=== PATIENT | female | born 1970 | race Caucasian/White ===

== ENCOUNTER 2019-11-15 15:22 | Outpatient (CLI) | payer BC, SELFPAY ==
[2019-11-15 18:09] LABS: Basophils # 0.1 10^3/uL (0.0-0.1); Eosinophils # 0.4 10^3/uL (0.0-0.8); Eosinophils % 3.6 %; Hematocrit 42.9 % (37.0-47.0); Hemoglobin 13.9 g/dL (11.5-15.3); Lymphocytes # 2.8 10^3/uL (0.8-4.8); Lymphocytes % 27.7 %; Mean Corpuscular HGB Conc 32.4 g/dL (30.0-36.0); Mean Corpuscular Hemoglobin 30.6 pg (28.0-34.0); Mean Corpuscular Volume 94.5 fL (81-99); Mean Platelet Volume 10.6 fL (7.4-10.4); Monocytes # 0.6 10^3/uL (0.2-0.9); Monocytes % 6.3 %; Neutrophils # 6.1 10^3/uL (1.8-7.7); Nucleated Red Blood Cells % 0 %; Platelet Count 453 10^3/cmm (130-400); Red Blood Count 4.54 10^6/uL (4.1-5.3); Red Cell Distribution Width 13.1 % (12.1-15.1)
[2019-11-15 23:11] LABS: Hepatitis C Virus Antibody Non-Reactive (Nonreactive)
[2019-11-15 23:21] LABS: Alanine Aminotransferase 11 U/L (0-33); Albumin Level 4.4 g/dL (3.5-5.2); Alkaline Phosphatase 64 IU/L (35-105); Anion Gap 15.3 (5-19); Aspartate Amino Transferase 14 U/L (0-32); Blood Urea Nitrogen 8 mg/dL (6-20); Calcium 8.8 mg/dL (8.5-10.5); Carbon Dioxide 25 mmol/L (22-29); Chloride 101 mmol/L (98-107); Chol HDL Ratio 7.51 mg/dL (0.0-4.40); Cholesterol 308 mg/dL (0-200); Globulin 2.1 g/dL (1.3-4.6); Glomerular Filtration Rate 106.7 mL/min (90-130); Glucose 119 mg/dL (65-115); HDL Cholesterol 41 mg/dL (60-100); LDL Cholesterol Calculated 229 mg/dL (50-129); LDL HDL Ratio 5.59 RATIO (0.00-3.22); Osmolality Calculated 281 mOsm/kg (285-295); Potassium 4.3 mmol/L (3.5-5.1); Sodium 137 mmol/L (136-145); Thyroid Stimulating Hormone 2.17 uIU/mL (0.27-4.20); Total Bilirubin 0.5 mg/dL (0.15-1.2); Total Protein 6.5 g/dL (6.6-8.7); Triglycerides 190 mg/dL (0-150)
[2019-11-16 10:22] LABS: Estmated Average Glucose 143; Hemoglobin A1C 6.6 % (4.0-6.0)
== END 2019-11-15 15:23 | disposition home or self-care (01) ==
LOC: LAB 15:29
PROVIDERS: Family Provider Nurse Practitioner Family; Visit Provider Nurse Practitioner Family
DX: Z13.220 Encounter for screening for lipoid disorders (principal); M54.5 Low back pain
CPT/HCPCS: 80053; 80061; 83036; 84443; 85025; 86803

== ENCOUNTER 2019-11-29 15:19 | Outpatient (CLI) | payer BC, SELFPAY ==
[2019-11-29 17:46] LABS: Creatinine Urine, Random 229 mg/dL (28-217); Microalbum Creatinine Ratio Ur 13 mg/dL (0-20); Microalbumin Random Urine 3 ug/dL (0-20)
== END 2019-11-29 15:20 | disposition home or self-care (01) ==
LOC: LAB 15:27
PROVIDERS: PCP Nurse Practitioner Family; Visit Provider Nurse Practitioner Family
DX: R73.03 Prediabetes (principal)
CPT/HCPCS: 82044

== ENCOUNTER 2020-03-06 15:09 | Outpatient (CLI) | payer BC, SELFPAY ==
[2020-03-06 15:48] LABS: Estmated Average Glucose 117; Hemoglobin A1C 5.7 % (4.0-6.0)
[2020-03-06 16:58] LABS: Anion Gap 17.3 (5-19); Blood Urea Nitrogen 8 mg/dL (6-20); Carbon Dioxide 22 mmol/L (22-29); Chloride 102 mmol/L (98-107); Chol HDL Ratio 4.05 mg/dL (0.0-4.40); Cholesterol 170 mg/dL (0-200); Glomerular Filtration Rate 131.1 mL/min (90-130); Glucose 118 mg/dL (65-115); HDL Cholesterol 42 mg/dL (60-100); LDL Cholesterol Calculated 102 mg/dL (50-129); LDL HDL Ratio 2.43 RATIO (0.00-3.22); Osmolality Calculated 283 mOsm/kg (285-295); Potassium 4.3 mmol/L (3.5-5.1); Sodium 137 mmol/L (136-145); Triglycerides 132 mg/dL (0-150)
== END 2020-03-06 15:10 | disposition home or self-care (01) ==
LOC: LAB 15:11
PROVIDERS: PCP Nurse Practitioner Family; Visit Provider Family Medicine
DX: R73.03 Prediabetes (principal); E78.00 Pure hypercholesterolemia, unspecified; F41.1 Generalized anxiety disorder
CPT/HCPCS: 80048; 80061; 83036; 84443

== ENCOUNTER 2020-06-01 05:35 | Observation (INO) | payer BC, SELFPAY ==
[2020-06-01] VITALS (20 sets, daily range): BP systolic 106–132; BP diastolic 62–88; PULSE 70–97; RESP 16–20; TEMP 36.4–36.9; O2SAT 94–98; BMI 31.1
[2020-06-01 06:05] LABS: Glucose Point of Care 124 mg/dL (70-110)
--- NOTE | 2020-06-01 06:30 | W.ED.NEUROSD ---
HPI - Neuro Symptoms/Deficit General: Chief Complaint: Neuro Symptoms/Deficit Stated Complaint: confused/vertigo/feels drunk but isn't Time Seen by Provider: 06/01/20 06:12 History of Present Illness: HPI Narrative: 49-year-old female who fell asleep in her recliner last night around 10 or 1030 then woke up at 1 AM. She was in her normal state health when she fell asleep when she woke up she had some lightheadedness and dizziness states it was felt as if she had been drinking heavily but she had not done any alcohol. She went to bed available copra 430 5:00 sat up at the edge of the bed to smoke a cigarette and noticed that she still at the dizziness in fact it seemed a little bit worse. She also difficulty walking. When she came into the ER she had significant gait disturbance. When she was seen in the exam room she is laying semireclined symptoms are worsened when she sits up. Her daughter who is with her states that one time she felt a little bit like her speech was slurred that seems to resolve now. At the time patient was seen she is complaining of perioral numbness and tingling affecting both sides in the mouth. Onset (ago): hour(s) Last Observed Normal: 22:30 Location: left leg History of same: No Severity: moderate Quality: weak, numb and tingling Relieving factors: rest Exacerbating factors: other (Sitting up) On Anticoagulants: No Associated symptoms: Reports tingling, vertigo and weakness; Deny chest pain, cough, diaphoresis, fevers/chills, headache(s), anorexia, malaise, nausea, seizures, short of breath, syncope or vomiting Treatments Prior to Arrival: none Review of Systems Const: Denies: malaise or diaphoresis ENMT: Denies: throat pain, ear or mastoid pain, nasal discharge or nasal congestion Card: Denies: chest pain or syncope Resp: Denies: dyspnea, productive cough or non-productive cough GI: Denies: nausea or vomiting : Denies: flank pain, difficulty voiding, dysuria, urinary frequency or urinary urgency Skin/Breast: Denies: rash or pruritus Neuro: Reports: vertigo; Denies: headache(s) PFSH ED PFSH: Medical History Anxiety disorder Depression Diabetes mellitus GERD (gastroesophageal reflux disease) History of colon polyps Hyperlipidemia Surgical History S/P breast biopsy S/P dilation and curettage Miscarriage S/P endometrial ablation (03/18/11) ThermaChoice endometrial ablation. Performed by Dr. Ly at [facility] in [place], [place] S/P ERCP (~2004) At [facility]. Stone in duct after cholecystectomy. S/P laparoscopic cholecystectomy (05/21/05) Performed by Dr. Garnett at [facility] in [place], [place]. S/P tubal ligation (~2004) Family History Grandfather Cancer Prostate cancer - Maternal grandmother Grandmother CAD (coronary artery disease) Maternal Mother Syncope Black out spells Other Benign essential tremor Social History Smoking and tobacco status: current every day smoker cigarettes Packs smoked per day: 1 [ Other cigarette details: Most smoked 2 PPD ] NIH stroke score NIHSS: Level Of Consciousness - 1a: 0 Level Of Consciousness Questions - 1b: Both Correct Level Of Consciousness Commands - 1c: Both Correct Best Gaze - 2: Normal Visual Kay - 3: No Visual Loss Facial Palsy - 4: Normal Motor Arm Right - 5: No Drift Motor Arm Left - 5: No Drift Motor Leg Right - 6: Drift Motor Leg Left - 6: No Drift Limb Ataxia - 7: Present In One Limb Sensory - 8: Normal Best Language - 9: No Aphasia Dysarthia - 10: Normal Extinction And Inattention - 11: 0 Score: Total Score: 2 Physical Exam Const: COMMON NORMALS: no acute distress GENERAL APPEARANCE: cooperative and comfortable ORIENTATION/CONSCIOUSNESS: Yes awake, Yes oriented to person, Yes oriented to place and Yes oriented to time HENMT: COMMON NORMALS: normocephalic, atraumatic and hearing grossly normal bilaterally HEAD & SCALP: normocephalic and atraumatic Eye: COMMON NORMALS: Equal, round and reactive pupils present, EOMs intact bilaterally, conjunctivae normal and no scleral icterus CONJUNCTIVA: Yes conjunctivae normal PUPIL: Yes Equal, round and reactive pupils present Neck/C-Spine: COMMON NORMALS: no JVD Resp: COMMON NORMALS: normal respiratory effort, No retractions, No use of accessory muscles and clear to auscultation bilaterally AUSCULTATION: clear to auscultation bilaterally Cardio: COMMON NORMALS: no JVD, regular rate, regular rhythm and No murmurs present (Cardio) RATE: regular rate RHYTHM: regular rhythm GI: COMMON NORMALS: Soft to palpation and No hepatosplenomegaly present AUSCULTATION: Yes normoactive bowel sounds PALPATION: Yes Soft to palpation, No Tenderness to palpation present (GI), No Guarding due to palpation present (GI) and Yes No hepatosplenomegaly present Extremity: COMMON NORMALS: normal to inspection, capillary refill normal, no clubbing, cyanosis or edema, no calf tenderness and no pedal edema Neuro: SENSORIUM/ORIENTATION: Yes oriented to person, Yes oriented to place and Yes oriented to time Skin: COMMON NORMALS: no rashes or lesions noted GENERAL SKIN EXAM: no rashes or lesions noted Course Vital Signs: Vital signs: Vital Signs Temperature 98.4 F 06/01/20 05:41 Pulse Rate 88 06/01/20 06:19 Respiratory Rate 18 06/01/20 06:19 Blood Pressure 110/70 06/01/20 08:18 Pulse Oximetry 94 06/01/20 08:18 MDM - Neuro Symptoms/Deficit MDM Narrative: Medical decision making narrative: Her left leg ataxia is still persisting as is her dizziness is a little better when she is laying down. CTA of the head and neck and CT of the head are all unremarkable. Given her age and persistence of the left leg ataxia as well as dizziness we will go ahead and admit her to observation for further evaluation discussed Dr. Batista orders are written. Lab Data: Labs: Lab Results 06/01/20 06/01/20 06/01/20 Range/Units 06:02 06:10 06:15 WBC 10.1 H (4.0-10.0) 10^3/ uL RBC 4.69 (4.1-5.3) 10^6/u L Hgb 15.1 (11.5-15.3) g/dL Hct 47.6 H (37.0-47.0) % MCV 101.5 H (81-99) fL MCH 32.2 (28.0-34.0) pg MCHC 31.7 (30.0-36.0) g/dL RDW 13.1 (12.1-15.1) % Plt Count 398 (130-400) 10^3/c mm MPV 9.4 (7.4-10.4) fL Neut % (Auto) 59.0 % Lymph % (Auto) 29.2 % [place] % (Auto) 6.4 % Eos % (Auto) 4.1 % Baso % (Auto) 1.0 % Neut # (Auto) 5.95 (1.8-7.7) 10^3/u L Lymph # (Auto) 2.9 (0.8-4.8) 10^3/u L [place] # (Auto) 0.7 (0.2-0.9) 10^3/u L Eos # (Auto) 0.4 (0.0-0.8) 10^3/u L Baso # (Auto) 0.1 (0.0-0.1) 10^3/u L Nucleated RBC % (a uto) 0 % Nucleated RBCs # 0.0 /100WBC PT (12.1-14.9) SECO NDS INR (0.8-1.2) APTT (23.9-36.7) SECO NDS Sodium (136-145) mmol/L Potassium (3.5-5.1) mmol/L Chloride (98-107) mmol/L Carbon Dioxide (22-29) mmol/L Anion Gap (5-19) BUN (6-20) mg/dL Creatinine (0.5-0.9) mg/dL GFR Calculation (90-130) mL/min Glucose (65-115) mg/dL POC Glucose 124 (70-110) mg/dL Calculated Osmolal ity (285-295) mOsm/k g Lactic Acid (0.5-2.2) mmol/L Calcium (8.5-10.5) mg/dL Total Bilirubin (0.15-1.2) mg/dL AST (0-32) U/L ALT (0-33) U/L Alkaline Phosphata se (35-105) IU/L Total Protein (6.6-8.7) g/dL Albumin (3.5-5.2) g/dL Globulin (1.3-4.6) g/dL Urine Color Straw (Yellow) Urine Appearance Clear (CLEAR) Urine pH 6.5 (5-7) Ur Specific Gravit y 1.015 (1.005-1.030) Urine Protein Neg (Negative) Urine Glucose (UA) Norm (Normal) Urine Ketones Negative (Negative) Urine Blood Neg (Negative) Urine Nitrate Negative (Negative) Urine Bilirubin Neg (Negative) Urine Urobilinogen Norm (Negative) mg/dL Ur Leukocyte Breanne ase Negative (Negative) 06/01/20 06/01/20 06/01/20 Range/Units 06:15 06:15 06:15 WBC (4.0-10.0) 10^3/ uL RBC (4.1-5.3) 10^6/u L Hgb (11.5-15.3) g/dL Hct (37.0-47.0) % MCV (81-99) fL MCH (28.0-34.0) pg MCHC (30.0-36.0) g/dL RDW (12.1-15.1) % Plt Count (130-400) 10^3/c mm MPV (7.4-10.4) fL Neut % (Auto) % Lymph % (Auto) % [place] % (Auto) % Eos % (Auto) % Baso % (Auto) % Neut # (Auto) (1.8-7.7) 10^3/u L Lymph # (Auto) (0.8-4.8) 10^3/u L [place] # (Auto) (0.2-0.9) 10^3/u L Eos # (Auto) (0.0-0.8) 10^3/u L Baso # (Auto) (0.0-0.1) 10^3/u L Nucleated RBC % (a uto) % Nucleated RBCs # /100WBC PT 12.20 (12.1-14.9) SECO NDS INR 0.88 (0.8-1.2) APTT 29.3 (23.9-36.7) SECO NDS Sodium 140 (136-145) mmol/L Potassium 4.2 (3.5-5.1) mmol/L Chloride 107 (98-107) mmol/L Carbon Dioxide 24 (22-29) mmol/L Anion Gap 13.2 (5-19) BUN 10 (6-20) mg/dL Creatinine 0.5 (0.5-0.9) mg/dL GFR Calculation 131.1 H (90-130) mL/min Glucose 122 H (65-115) mg/dL POC Glucose (70-110) mg/dL Calculated Osmolal ity 290 (285-295) mOsm/k g Lactic Acid 0.7 (0.5-2.2) mmol/L Calcium 9.1 (8.5-10.5) mg/dL Total Bilirubin 0.7 (0.15-1.2) mg/dL AST 14 (0-32) U/L ALT 11 (0-33) U/L Alkaline Phosphata se 73 (35-105) IU/L Total Protein 6.8 (6.6-8.7) g/dL Albumin 4.2 (3.5-5.2) g/dL Globulin 2.6 (1.3-4.6) g/dL Urine Color (Yellow) Urine Appearance (CLEAR) Urine pH (5-7) Ur Specific Gravit y (1.005-1.030) Urine Protein (Negative) Urine Glucose (UA) (Normal) Urine Ketones (Negative) Urine Blood (Negative) Urine Nitrate (Negative) Urine Bilirubin (Negative) Urine Urobilinogen (Negative) mg/dL Ur Leukocyte Breanne ase (Negative) Discharge Plan Discharge Patient Disposition: Placed in Observation Clinical Impression: Acute CVA (cerebrovascular accident) Coding Level of Care Code ED Family Practice Md for Eriberto Fwd Exam Comprehensive
--- NOTE | 2020-06-01 06:31 | CTR_ITS ---
PROCEDURE INFORMATION: Exam: CT Head Without Contrast Exam date and time: 06/01/2020 6:40 AM Age: 50 years old Clinical indication: Dizziness; Additional info: Weakness, dizziness TECHNIQUE: Imaging protocol: Computed tomography of the head without contrast. Radiation optimization: All CT scans at this facility use at least one of these dose optimization techniques: automated exposure control; mA and/or kV adjustment per patient size (includes targeted exams where dose is matched to clinical indication); or iterative reconstruction. COMPARISON: No relevant prior studies available. RADIATION DOSE METRICS: Total DLP (mGy-cm): 888.43 FINDINGS: Brain: There is no acute intracranial hemorrhage. No extra-axial fluid collection. No evidence of acute infarct. Thomas white differentiation is intact. There is no evidence of mass. There is no mass effect or midline shift. Cerebral ventricles: No ventriculomegaly. Bones/joints: No acute fracture. Paranasal sinuses: There is right maxillary sinus retention cyst or polyp. There is minimal mucosal thickening in maxillary and ethmoid sinuses bilaterally. No air-fluid levels or acute sinusitis. Mastoid air cells: Mastoid air cells and middle ear cavities are well developed and well aerated. Soft tissues: Unremarkable as visualized. CT/CT head wo con* [id number] IMPRESSION: No evidence of acute intracranial abnormality. No acute hemorrhage. No evidence of acute infarct or mass. Radiation Dose CTDIVOL = (mGy): DLP = 888.43 (mGy-cm)
[2020-06-01 06:37] LABS: Add Urine Microscopic? NO
[2020-06-01 06:39] LABS: Basophils # 0.1 10^3/uL (0.0-0.1); Eosinophils # 0.4 10^3/uL (0.0-0.8); Eosinophils % 4.1 %; Hematocrit 47.6 % (37.0-47.0); Hemoglobin 15.1 g/dL (11.5-15.3); Lymphocytes # 2.9 10^3/uL (0.8-4.8); Lymphocytes % 29.2 %; Mean Corpuscular HGB Conc 31.7 g/dL (30.0-36.0); Mean Corpuscular Hemoglobin 32.2 pg (28.0-34.0); Mean Corpuscular Volume 101.5 fL (81-99); Mean Platelet Volume 9.4 fL (7.4-10.4); Monocytes # 0.7 10^3/uL (0.2-0.9); Monocytes % 6.4 %; Neutrophils # 5.95 10^3/uL (1.8-7.7); Nucleated Red Blood Cells % 0 %; Platelet Count 398 10^3/cmm (130-400); Red Blood Count 4.69 10^6/uL (4.1-5.3); Red Cell Distribution Width 13.1 % (12.1-15.1); White Blood Count 10.1 10^3/uL (4.0-10.0)
[2020-06-01 06:42] LABS: Urine Appearance Clear (CLEAR); Urine Color Straw (Yellow)
[2020-06-01 06:43] LABS: Bilirubin Urine Neg (Negative); Blood Urine Neg (Negative); Glucose Urine UA Norm (Normal); Ketones Urine Negative (Negative); Leukocyte Esterase Urine Negative (Negative); Nitrate Urine Negative (Negative); Protein Urine Neg (Negative); Specific Gravity, Urine 1.015 (1.005-1.030); Urobilinogen Urine Norm (Negative); pH Urine 6.5 (5-7)
[2020-06-01 06:52] LABS: INR 0.88 (0.8-1.2)
[2020-06-01 06:53] LABS: Lactic Sepsis W/Reflex 0.7 mmol/L (0.5-2.2); Partial Thromboplastin Time 29.3 SECONDS (23.9-36.7)
[2020-06-01 06:54] LABS: Alanine Aminotransferase 11 U/L (0-33); Albumin Level 4.2 g/dL (3.5-5.2); Alkaline Phosphatase 73 IU/L (35-105); Anion Gap 13.2 (5-19); Aspartate Amino Transferase 14 U/L (0-32); Blood Urea Nitrogen 10 mg/dL (6-20); Calcium 9.1 mg/dL (8.5-10.5); Carbon Dioxide 24 mmol/L (22-29); Chloride 107 mmol/L (98-107); Globulin 2.6 g/dL (1.3-4.6); Glomerular Filtration Rate 131.1 mL/min (90-130); Glucose 122 mg/dL (65-115); Osmolality Calculated 290 mOsm/kg (285-295); Potassium 4.2 mmol/L (3.5-5.1); Sodium 140 mmol/L (136-145); Total Bilirubin 0.7 mg/dL (0.15-1.2); Total Protein 6.8 g/dL (6.6-8.7)
--- NOTE | 2020-06-01 07:23 | CTR_ITS ---
PROCEDURE INFORMATION: Exam: CT Angiography Head With Contrast Exam date and time: 06/01/2020 7:29 AM Age: 50 years old Clinical indication: Dizziness and giddiness; Additional info: L leg weakness and ataxia TECHNIQUE: Imaging protocol: Computed tomography angiography of the head with intravenous contrast. 3D rendering (Not supervised by radiologist): MIP and/or 3D reconstructed images were created by the technologist. Radiation optimization: All CT scans at this facility use at least one of these dose optimization techniques: automated exposure control; mA and/or kV adjustment per patient size (includes targeted exams where dose is matched to clinical indication); or iterative reconstruction. Contrast material: OMNI 350; Contrast volume: 95 ml; Contrast route: INTRAVENOUS (IV); COMPARISON: CT head wo con* [id number] 06/01/2020 6:43 AM RADIATION DOSE METRICS: Total DLP (mGy-cm): 2400.65 FINDINGS: ANTERIOR CIRCULATION: Right internal carotid artery: Minimal calcification. Intracranial segment is patent with no significant stenosis. No aneurysm. Right middle cerebral artery: Unremarkable. No occlusion or significant stenosis. No aneurysm. Right anterior cerebral artery: Unremarkable. No occlusion or significant stenosis. No aneurysm. Left internal carotid artery: Minimal calcification. Intracranial segment is patent with no significant stenosis. No aneurysm. Left middle cerebral artery: Unremarkable. No occlusion or significant stenosis. No aneurysm. Left anterior cerebral artery: Unremarkable. No occlusion or significant stenosis. No aneurysm. POSTERIOR CIRCULATION: Right vertebral artery: Unremarkable. No occlusion or significant stenosis. No aneurysm. Left vertebral artery: Unremarkable. No occlusion or significant stenosis. No aneurysm. Basilar artery: Unremarkable. No occlusion or significant stenosis. No aneurysm. Right posterior cerebral artery: Unremarkable. No occlusion or significant stenosis. No aneurysm. Left posterior cerebral artery: Unremarkable. No occlusion or significant stenosis. No aneurysm. Veins: Cerebral venous structures are patent. Brain: No definite mass, mass effect, or midline shift. Cerebral ventricles: No ventriculomegaly. Paranasal sinuses: There are 2 right maxillary sinus retention cysts or polyps. IMPRESSION: No intracranial vascular stenosis or occlusion. PROCEDURE INFORMATION: Exam: CT Angiography Neck With Contrast Exam date and time: 06/01/2020 7:29 AM Age: 50 years old Clinical indication: Dizziness and giddiness; Additional info: L leg weakness and ataxia TECHNIQUE: Imaging protocol: Computed tomography angiography of the neck with intravenous contrast. 3D rendering (Not supervised by radiologist): MIP and/or 3D reconstructed images were created by the technologist. Radiation optimization: All CT scans at this facility use at least one of these dose optimization techniques: automated exposure control; mA and/or kV adjustment per patient size (includes targeted exams where dose is matched to clinical indication); or iterative reconstruction. Contrast material: OMNI 350; Contrast volume: 95 ml; Contrast route: INTRAVENOUS (IV); COMPARISON: CT head wo con* [id number] 06/01/2020 6:43 AM RADIATION DOSE METRICS: Total DLP (mGy-cm): 2400.65 FINDINGS: Right common carotid artery: No stenosis. No dissection or occlusion. Right internal carotid artery: There is minimal plaque right carotid bifurcation. There is no stenosis, thrombosis, occlusion, or evidence of dissection. Right external carotid artery: No occlusion or stenosis of the origin. Right vertebral artery: No stenosis. No dissection or occlusion. Left common carotid artery: No stenosis. No dissection or occlusion. Left internal carotid artery: Left internal carotid artery shows no stenosis, thrombosis, occlusion, or evidence of dissection. Left external carotid artery: No occlusion or stenosis of the origin. Left vertebral artery: No stenosis. No dissection or occlusion. Subclavian arteries: Bilateral subclavian arteries are widely patent. Aorta: Aortic arch normal in caliber. No aneurysm or dissection. Thyroid: Two small low-density right thyroid nodules measuring up to 4 mm. No follow-up is recommended. Bones/joints: There is straightening and slight reversal of cervical lordosis. There are degenerative changes which are predominantly at C5-C6 where there is disc height loss, disc osteophyte complexes causing effacement of spinal canal and likely mild or moderate spinal stenosis, and prominent uncinate osteophytes causing severe bilateral neural foraminal narrowing. There are prominent uncinate osteophytes at left C3-C4 causing severe left neural foraminal narrowing. Soft tissues: Normal. No significant soft tissue swelling. Lymph nodes: There are nonspecific cervical lymph nodes which are greatest and upper limits normal in bilateral levels 1B and 2. Lungs: There are small lucencies in visualized lungs consistent with small bulla. No consolidation. CT/CT angio headneck* [id number] IMPRESSION: No evidence of cervical vascular stenosis or occlusion. Other findings as described. COMMENTS: Consistent with the [employer]'s Incidental Findings Committee white paper (J Am Elizabeth Radiol 2015): In patients aged 35 years and older with an incidental thyroid nodule equal to or greater than 1.[address], MRI or extrathyroidal US, further evaluation with dedicated thyroid US is recommended for patients with normal life expectancy and without comorbidities. For smaller nodules without suspicious features, no further evaluation or follow up is recommended. REFERENCES: NASCET CRITERIA. The degree of internal carotid artery stenosis is based on NASCET criteria. Normal is no stenosis. Mild is less than 50% stenosis. Moderate is 50-69% stenosis. Severe is 70% to 99% stenosis. Total occlusion is no detectable patent lumen. Radiation Dose CTDIVOL = (mGy): DLP = 2400.65~2400.65 (mGy-cm)
[2020-06-01] MEDS: ondansetron 2 mg/ML SDV 2 mL 4 MG IVP ×2 (07:27→14:15)
[2020-06-01] MEDS: iohexol 350 mg/mL 100 mL Btl IV (07:48)
[2020-06-01] MEDS: nicotine 21 mg Patch 1 PATCH TRANSDERMA (09:24)
--- NOTE | 2020-06-01 09:53 | P.HP_ITS ---
Providers/Chief Complaint Admitting Physician: Chastity Betts Chief Complaint: confused/vertigo/feels drunk but isn't History of Present Illness 50-year-old female with a past medical history significant for gastroesophageal reflux disease, hyperlipidemia, tobacco abuse, anxiety, depression, diabetes mellitus and recent COVID-19 infection in early March who was presented to the hospital with onset of dizziness, slurred speech and ataxia. Patient stated that she had woken up from sleep around 1:00 a.m. to use the restroom during whi ch time she noted the symptoms. Was falling towards the left with any attempted ambulate. She was able to fall back asleep however upon wakening up this morning she noted persistent symptoms. Stated her daughter had noticed slurred speech during which time she had perioral numbness and tingling as well. Denies any chest pain. No loss of conscious. No prior history of CVA. upon arrival to emergency room her initial NIH score was 2. initial laboratory workup in emergency room showed a WBC of 10.1, hemoglobin of 15.1, hematocrit of 47.6 and a platelet count of 398. INR of 0.88. Sodium 140, potassium 4.2, chloride 107, bicarb 24, BUN 10 and creatinine of 0.5. Lactic acid of 0.7. LFTs were within normal limits. Urinalysis was negative. Vital signs showed a blood pressure of 116/77, pulse of 72, respiratory rate of 18, temperature of 97.6 and oxygen saturation of 97% on room air. CT head without contrast and CT angio head and neck was performed both of which did not show any evidence of acute hemorrhage, intra-cranial mass or flow-limiting stenosis. At the time of my salazar toussaint,oral numbness has resolved however did have continued left upper and lower extremity weakness. Patient was admitted to hospital for CVA work up. Review of Systems General: Reports: 10 or more systems reviewed and unremarkable except in HPI and below Medications/Allergies Home Medications Medication Instructions Recorded Confirmed Last Taken Type baclofen 10 mg tablet 10 mg PO TID PRN tab 04/03/20 06/01/20 Unknown History cetirizine 10 mg capsule 10 mg PO DAILY PRN 04/03/20 06/01/20 Unknown History diclofenac potassium 50 mg tablet 50 mg PO TID PRN 04/03/20 06/01/20 Unknown History duloxetine 60 mg capsule,delayed 60 mg PO DAILY@22 04/03/20 06/01/20 05/31/20 History release fluticasone propionate 50 1 spray INTRANASAL DAILY PRN 04/03/20 06/01/20 Unknown History mcg/actuation nasal spray,suspension lorazepam 1 mg tablet 1 mg PO BID PRN tab 04/03/20 06/01/20 Unknown History metformin 500 mg tablet,extended 500 mg PO DAILY@04/03/20 06/01/20 05/31/20 History release 24 hr rosuvastatin 20 mg tablet 10 mg PO DAILY@04/03/20 06/01/20 05/31/20 History 10 mg albuterol sulfate 1 - 2 puff INHALATION Q4H PRN 06/01/20 06/01/20 Unknown History pediatric multivitamin See Rx Instructions .ROUTE .COMPLEX 06/01/20 06/01/20 05/31/20 History [Flintstones Multivitamin] Allergies Allergy/AdvReac Type Severity Reaction Status Date / Time No Known Allergies Allergy Verified 06/01/20 09:24 PFSH Acute PFSH: Medical History Anxiety disorder Depression Diabetes mellitus GERD (gastroesophageal reflux disease) History of colon polyps Hyperlipidemia Surgical History S/P breast biopsy S/P dilation and curettage Miscarriage S/P endometrial ablation (03/18/11) ThermaChoice endometrial ablation. Performed by Dr. Ly at [facility] in [place], [place] S/P ERCP (~2004) At [facility]. Stone in duct after cholecystectomy. S/P laparoscopic cholecystectomy (05/21/05) Performed by Dr. Garnett at [facility] in [place], [place]. S/P tubal ligation (~2004) Family History Grandfather Cancer Prostate cancer - Maternal grandmother Grandmother CAD (coronary artery disease) Maternal Mother Syncope Black out spells Other Benign essential tremor Social History Smoking and tobacco status: current every day smoker cigarettes Packs smoked per day: 1 [ Other cigarette details: Most smoked 2 PPD ] Vitals/I&O/Wt Last Vital Signs Temp 97.9 F 06/01/20 11:43 Pulse 80 06/01/20 11:43 Resp 18 06/01/20 11:43 BP 115/72 06/01/20 11:43 Pulse Ox 97 06/01/20 11:43 Weight last 48 hrs Weight 79.832 kg Physical Exam Narrative: EXAM NARRATIVE: General -alert awake and oriented x3, no apparent distress HEENT-grossly unremarkable CVS : NSR Chest : Non-labored respiration ABD : Soft NT, ND EXT : NO edema Neuro : CN 2-12 grossly intact, MS on LUE - 4/5, LLE 3/5, Sensation intact. Data : 06/01/20 06:15 06/01/20 06:15 A&P Assessment and plan (1) Acute CVA (cerebrovascular accident): Continue to have L.sided weakness Suspected CVA - NIH 2 on arrival No TPA due to unclear onset > [address] head/CTA H&N - no acute hemorrhage, or stenosis Asprin 81 mg PO daily High dose statin- Lipitor 80 mg PO daily Lipid panel in am / A1c in AM MRI brain w/wo contrast 24hr post symptoms ECHO - Pending Monitor on telemetry Neuro-checks as ordered. NPO until pass bedside swallow PT/OT/ST consult lead clinical research coordinator consult Fall precautions Status: Acute (2) Diabetes mellitus: Check A1c in AM Sliding scale insulin Diabetic diet Hold home metformin Status: Acute (3) Depression: Status: Acute (4) Anxiety disorder: Status: Acute (5) Hyperlipidemia: As noted above Status: Acute (6) GERD (gastroesophageal reflux disease): Status: Acute (7) History of 2019 novel coronavirus disease (COVID-19): Aymptomatic Status: Acute Attestations Medical Necessity Statement*: Will require hospitalization for stroke work up. Placed in observation. Anticipate less than 2 midnight stay in hospital for managment. Time Spent in Patient Care: Greater than 35 minutes (>than 50% of time spent in counselling and/or direct pt care on unit) . Coding Level of Care Code Acute Talent Specialist for Eriberto Lerma Diagnoses Acute CVA (cerebrovascular accident) I63.9 Diabetes mellitus E11.9 Depression F32.9 Anxiety disorder F41.9 Hyperlipidemia E78.5 GERD (gastroesophageal reflux disease) K21.9 History of 2019 novel coronavirus disease (COVID-19) Z86.19
--- NOTE | 2020-06-01 10:00 | MRR_ITS ---
PROCEDURE INFORMATION: Exam: MR Head Without and With Contrast Exam date and time: 06/01/2020 10:04 AM Age: 50 years old Clinical indication: Weakness, extremity; Left; Additional info: Lle weakness/ ataxia suspected CVA TECHNIQUE: Imaging protocol: MR of the head without and with intravenous contrast. 3D rendering (Not supervised by radiologist): MIP and/or 3D reconstructed images were created by the technologist. Contrast material: PROHANCE; Contrast volume: 16 ml; Contrast route: INTRAVENOUS (IV); COMPARISON: CT head wo con* [id number] 06/01/2020 6:43 AM FINDINGS: Brain: Scattered areas of increased signal in cerebral white matter predominantly in subcortical regions and centrally within the tera are nonspecific but may be microvascular change. These can also be seen as sequela of migraine headaches. There is no abnormal leptomeningeal or parenchymal contrast enhancement. Diffusion images are normal. No evidence of acute infarction. No evidence of acute intracranial hemorrhage. No extra-axial fluid collections. Ventricles and cerebrospinal fluid spaces are normal in size and configuration for the patient's age. There is no evidence of mass-effect or midline shift. Flow voids of the [place] and major cerebral vascular structures appear intact. Cerebellar tonsils project slightly below level of foramen magnum, and location is lower limits of normal. Configuration of cerebellar tonsils is normal and rounded.. Cerebral ventricles: Normal. No ventriculomegaly. Bones/joints: Unremarkable as visualized. Paranasal sinuses: There are right maxillary sinus retention cysts or polyps. Mastoid air cells: No significant mastoid effusion. Orbits: Unremarkable as visualized. No exophthalmos or evidence of mass. Soft tissues: Unremarkable as visualized. MR/MR head wo/w con [id number] IMPRESSION: Mild nonspecific white matter changes. No acute infarct, acute hemorrhage, or evidence of intracranial mass.
[2020-06-01] MEDS: sodium chloride 0.9% 1,000 ML 100 ML IV ×2 (10:50→20:23)
[2020-06-01 11:46] LABS: Glucose Point of Care 145 mg/dL (70-110)
[2020-06-01 16:37] LABS: Glucose Point of Care 127 mg/dL (70-110)
[2020-06-01] MEDS: atorvastatin 40 mg Tablet 80 MG PO (20:35)
[2020-06-01 21:13] LABS: Glucose Point of Care 94 mg/dL (70-110)
[2020-06-02] VITALS (10 sets, daily range): BP systolic 104–132; BP diastolic 63–87; PULSE 69–89; RESP 16–18; TEMP 36.4–37.1; O2SAT 96–98
[2020-06-02] MEDS: duloxetine 60 mg Capsule PO (00:06)
[2020-06-02 03:48] LABS: Chol HDL Ratio 3.39 mg/dL (0.0-4.40); Cholesterol 156 mg/dL (0-200); HDL Cholesterol 46 mg/dL (60-100); LDL Cholesterol Calculated 88 mg/dL (50-129); LDL HDL Ratio 1.91 RATIO (0.00-3.22); Triglycerides 108 mg/dL (0-150)
[2020-06-02 03:49] LABS: Alanine Aminotransferase 8 U/L (0-33); Albumin Level 3.7 g/dL (3.5-5.2); Alkaline Phosphatase 62 IU/L (35-105); Anion Gap 12.1 (5-19); Aspartate Amino Transferase 11 U/L (0-32); Blood Urea Nitrogen 10 mg/dL (6-20); Calcium 8.4 mg/dL (8.5-10.5); Carbon Dioxide 23 mmol/L (22-29); Chloride 109 mmol/L (98-107); Estmated Average Glucose 111; Globulin 2.2 g/dL (1.3-4.6); Glomerular Filtration Rate 131.1 mL/min (90-130); Glucose 109 mg/dL (65-115); Hemoglobin A1C 5.5 % (4.0-6.0); Osmolality Calculated 290 mOsm/kg (285-295); Potassium 4.1 mmol/L (3.5-5.1); Sodium 140 mmol/L (136-145); Total Bilirubin 0.3 mg/dL (0.15-1.2); Total Protein 5.9 g/dL (6.6-8.7)
[2020-06-02 03:55] LABS: Basophils # 0.1 10^3/uL (0.0-0.1); Basophils % 0.9 %; Eosinophils # 0.5 10^3/uL (0.0-0.8); Hematocrit 39.7 % (37.0-47.0); Hemoglobin 13.2 g/dL (11.5-15.3); Lymphocytes # 3.2 10^3/uL (0.8-4.8); Lymphocytes % 34.6 %; Mean Corpuscular HGB Conc 33.2 g/dL (30.0-36.0); Mean Corpuscular Hemoglobin 31.7 pg (28.0-34.0); Mean Corpuscular Volume 95.4 fL (81-99); Mean Platelet Volume 9.5 fL (7.4-10.4); Monocytes # 0.7 10^3/uL (0.2-0.9); Monocytes % 7.3 %; Neutrophils # 4.86 10^3/uL (1.8-7.7); Nucleated Red Blood Cells % 0 %; Platelet Count 370 10^3/cmm (130-400); Red Blood Count 4.16 10^6/uL (4.1-5.3); White Blood Count 9.3 10^3/uL (4.0-10.0)
--- NOTE | 2020-06-02 06:00 | USCV_ITS ---
Ashley Gutierrez Age: 50 Gender: F : 1970 Exam Date: 06/02/2020 08:33 Ordering Phys: Chastity Betts MD Technologist: Darlene Vicente [place] [facility] [place]: CVA Workup BP: 104 / 63 HR: 74 Rhythm: Sinus Technical Quality: Fair MEASUREMENTS (Male / Female) Normal Values 2D ECHO LV Diastolic Diameter PLAX 4.6 cm 4.2 - 5.9 / 3.9 - 5.3 cm LV Systolic Diameter PLAX 2.9 cm LV Chamber Size 4.3 cm IVS Diastolic Thickness 1.0 cm 0.6 - 1.0 / 0.6 - 0.9 cm IVS Systolic Thickness 1.2 cm LVPW Diastolic Thickness 0.6 cm 0.6 - 1.0 / 0.6 - 0.9 cm LVPW Systolic Thickness 1.1 cm RV Chamber Size 2.3 cm LVOT Diameter 1.8 cm LV Ejection Fraction 2D Teich 68.2 % LV Ejection Fraction MOD 2C 54.6 % LV Ejection Fraction 2C AL 55.3 % LA Diameter 3.1 cm LA Width 3.4 cm LA Height 4.4 cm RA Width 2.9 cm RA Height 4.3 cm Aorta at Sinotubular Diameter 2.5 cm M-MODE LV Diastolic Diameter MM 4.7 cm 4.2 - 5.9 / 3.9 - 5.3 cm LV Systolic Diameter MM 2.9 cm LV Ejection Fraction MM Teich 69.1 % IVS Diastolic Thickness MM 1.1 cm 0.6 - 1.0 / 0.6 - 0.9 cm IVS Systolic Thickness MM 1.3 cm LVPW Diastolic Thickness MM 1.1 cm 0.6 - 1.0 / 0.6 - 0.9 cm LVPW Systolic Thickness MM 1.6 cm RV Diastolic Diameter MM 1.8 cm Aortic Annulus Diameter 2.7 cm LA Ao Ratio MM 1.4 MV E Point Septal Separation 0.3 cm DOPPLER AV Peak Velocity 141.0 cm/s LVOT Peak Velocity 83.0 cm/s AV Area Cont Eq vti 1.6 cm squared AV Area Cont Eq pk 1.5 cm squared MV Area PHT 2.9 cm squared Mitral E to A Ratio 1.0 MV E' Velocity 41.0 cm/s Mitral E to MV E' Ratio 4.5 Mitral E to LV E' Lateral Ratio 4.2 Mitral E to LV E' Septal Ratio 4.8 TR Peak Velocity 179.0 cm/s TR Peak Gradient 12.8 mmHg TV Peak E Velocity 54.0 cm/s Right Atrial Pressure 3.0 mmHg Pulmonary Artery Systolic Pressu 15.8 mmHg PV Peak Velocity 87.0 cm/s RV Acceleration Time 0.1 s RV Ejection Time 0.3 s RV AcT/ET 0.5 FINDINGS Left Ventricle Normal left ventricular cavity size. Normal left ventricular systolic function. No regional wall motion abnormalities. Left ventricular ejection fraction is estimated at 65 %. Normal diastolic function. Right Ventricle The right ventricle is normal in size and function. RVSP could not be calculated due to incomplete tricuspid regurgitation velocity profile. Right Atrium The right atrium is normal in size. Left Atrium The left atrium is normal in size. Mitral Valve Mildly thickened mitral valve. Mild mitral annular calcification. No mitral valve stenosis. Trace mitral valve regurgitation. Aortic Valve Mild aortic valve calcification. No aortic valve stenosis. Trace aortic valve regurgitation. Tricuspid Valve Trace tricuspid valve regurgitation. Pulmonic Valve Structurally normal pulmonic valve without significant stenosis. There is no pulmonic regurgitation. Pericardium Normal pericardium without effusion. Aorta Normal ascending aorta dimension. CONCLUSIONS 1-Normal left ventricular cavity size. Normal left ventricular systolic function. No regional wall motion abnormalities. Left ventricular ejection fraction is estimated at 65 %. Normal diastolic function. 2-There is no pericardial effusion. 3-No significant valve abnormalities. 4-The right ventricle is normal in size and function. RVSP could not be calculated due to incomplete tricuspid regurgitation velocity profile. 5-Right atrial pressure is around 5 mm of mercury. 6-There are no prior echocardiogram studies to compare. Dion Jasso MD (Electronically Signed) Final Date: 02 June 2020 17:13 S
[2020-06-02] MEDS: sodium chloride 0.9% 1,000 ML 100 ML IV (06:35)
[2020-06-02 07:45] LABS: Glucose Point of Care 116 mg/dL (70-110)
[2020-06-02] MEDS: aspirin 81 mg EC Tablet PO (09:06)
[2020-06-02 11:36] LABS: Glucose Point of Care 104 mg/dL (70-110)
[2020-06-02] MEDS: nicotine 21 mg Patch 1 PATCH TRANSDERMA (16:00)
[2020-06-02] MEDS: clopidogrel 75 mg Tablet PO (16:00)
[2020-06-02 17:28] LABS: Glucose Point of Care 135 mg/dL (70-110)
--- NOTE | 2020-06-02 20:43 | P.DS_ITS ---
Discharge Providers Date of Admission: 06/01/20 09:11 Date of Discharge: June 02, 2020 Attending Provider at Admission: Chastity Betts Attending Provider at Discharge: Chastity Betts Diagnoses at Discharge Discharge Diagnosis (1) Acute CVA (cerebrovascular accident): Status: Acute (2) Diabetes mellitus: Status: Acute (3) Depression: Status: Acute (4) Anxiety disorder: Status: Acute (5) Hyperlipidemia: Status: Acute (6) GERD (gastroesophageal reflux disease): Status: Acute Permanent problem details: PPI (7) History of 2019 novel coronavirus disease (COVID-19): Status: Acute Reason for Visit Reason for Visit: confused/vertigo/feels drunk but isn't Hospital Course Hospital Course 50-year-old female with a past medical history significant for gastroesophageal reflux disease, hyperlipidemia, tobacco abuse, anxiety, depression, diabetes mellitus and recent COVID-19 infection in early March who was presented to the hospital with onset of dizziness, slurred speech and ataxia. Patient stated that she had woken up from sleep around 1:00 a.m. to use the restroom during which time she noted the symptoms. Was falling towards the left with any attempted ambulate. She was able to fall back asleep however upon wakening up this morning she noted persistent symptoms. Stated her daughter had noticed slurred speech during which time she had perioral numbness and tingling as well. Denies any chest pain. No loss of conscious. No prior history of CVA. upon arrival to emergency room her initial NIH score was 2. initial laboratory workup in emergency room showed a WBC of 10.1, hemoglobin of 15.1, hematocrit of 47.6 and a platelet count of 398. INR of 0.88. Sodium 140, potassium 4.2, chloride 107, bicarb 24, BUN 10 and creatinine of 0.5. Lactic acid of 0.7. LFTs were within normal limits. Urinalysis was negative. Vital signs showed a blood pressure of 116/77, pulse of 72, respiratory rate of 18, temperature of 97.6 and oxygen saturation of 97% on room air. CT head without contrast and CT angio head and neck was performed both of which did not show any evidence of acute hemorrhage, intra-cranial mass or flow-limiting stenosis. At the time of my eval dizziness,oral numbness has resolved however did have continued left upper and lower extremity weakness. Patient was admitted to hospital for CVA work up. Upon admission to the hospital patients symptoms had improved. Echocardiogram was performed which did not show any structural heart defect. Ejection fraction was preserved. MRI with and without contrast was performed which also did not show any evidence of acute CVA. No new neurological deficits were noted. Case was discussed with Neurology as patient was continued to have subtle weakness primarily in left lower extremity. Due to this patient was continued on dual anti-platelet therapy for 3 weeks with aspirin 81 mg daily and Plavix 75 mg daily. After completion she was to continue aspirin 81 mg daily. Patient was already on high-dose statins at home prior to arrival which was continued. Exact etiology of weakness was not clear however suspicion for COVID-19 related. patient was advised to return to hospital if any worsening or new symptoms. Did not have any fever med chills, nausea or vomiting. No dysphagia was noted. Speech was at baseline since admission. Patient was seen by PT and OT. Was discharged in stable condition. Physical Exam Narrative: EXAM NARRATIVE: General -alert awake and oriented x3, no apparent distress HEENT-grossly unremarkable CVS : NSR Chest : Non-labored respiration ABD : Soft NT, ND EXT : NO edema Neuro : CN 2-12 grossly intact, MS on LUE - 5/5, LLE 5/5, Sensation intact. Discharge Data Data Completed and Pending: Completed Studies During Hospitalization Category Date Time Status CT angio headneck * [id number] Stat Cat Scan 06/01/20 07:[address] head wo con* [id number] Stat Cat Scan 06/01/20 06:31 Completed MR head wo/w con [id number] Routine MRI 06/01/20 10:00 Completed CV echo complete* [id number] Routine Ultrasound 06/02/20 06:00 Completed Labs from last 24 hours 06/02/20 06/02/20 06/02/20 17:14 11:25 07:42 WBC RBC Hgb Hct MCV MCH MCHC RDW Plt Count MPV Neut % (Auto) Lymph % (Auto) [place] % (Auto) Eos % (Auto) Baso % (Auto) Neut # (Auto) Lymph # (Auto) [place] # (Auto) Eos # (Auto) Baso # (Auto) Nucleated RBC % (a uto) Nucleated RBCs # Sodium Potassium Chloride Carbon Dioxide Anion Gap BUN Creatinine GFR Calculation Glucose POC Glucose 135 104 116 Estimat Average Gl ucose Hemoglobin A1c Calculated Osmolal ity Calcium Total Bilirubin AST ALT Alkaline Phosphata se Total Protein Albumin Globulin Triglycerides Cholesterol LDL Cholesterol, C alc HDL Cholesterol LDL/HDL Ratio Cholesterol/HDL Ra manny 06/02/20 06/02/20 06/02/20 03:17 03:10 03:10 WBC 9.3 RBC 4.16 Hgb 13.2 Hct 39.7 MCV 95.4 D MCH 31.7 MCHC 33.2 RDW 13.0 Plt Count 370 MPV 9.5 Neut % (Auto) 52.0 Lymph % (Auto) 34.6 [place] % (Auto) 7.3 Eos % (Auto) 5.0 Baso % (Auto) 0.9 Neut # (Auto) 4.86 Lymph # (Auto) 3.2 [place] # (Auto) 0.7 Eos # (Auto) 0.5 Baso # (Auto) 0.1 Nucleated RBC % (a uto) 0 Nucleated RBCs # 0.0 Sodium Potassium Chloride Carbon Dioxide Anion Gap BUN Creatinine GFR Calculation Glucose POC Glucose Estimat Average Gl ucose 111 Hemoglobin A1c 5.5 Calculated Osmolal ity Calcium Total Bilirubin AST ALT Alkaline Phosphata se Total Protein Albumin Globulin Triglycerides 108 Cholesterol 156 LDL Cholesterol, C alc 88 HDL Cholesterol 46 L LDL/HDL Ratio 1.91 Cholesterol/HDL Ra manny 3.39 06/02/20 06/01/20 03:10 21:08 WBC RBC Hgb Hct MCV MCH MCHC RDW Plt Count MPV Neut % (Auto) Lymph % (Auto) [place] % (Auto) Eos % (Auto) Baso % (Auto) Neut # (Auto) Lymph # (Auto) [place] # (Auto) Eos # (Auto) Baso # (Auto) Nucleated RBC % (a uto) Nucleated RBCs # Sodium 140 Potassium 4.1 Chloride 109 H Carbon Dioxide 23 Anion Gap 12.1 BUN 10 Creatinine 0.5 GFR Calculation 131.1 H Glucose 109 POC Glucose 94 Estimat Average Gl ucose Hemoglobin A1c Calculated Osmolal ity 290 Calcium 8.4 L Total Bilirubin 0.3 AST 11 ALT 8 Alkaline Phosphata se 62 Total Protein 5.9 L Albumin 3.7 Globulin 2.2 Triglycerides Cholesterol LDL Cholesterol, C alc HDL Cholesterol LDL/HDL Ratio Cholesterol/HDL Ra manny Vitals: Last Vital Signs Temp 98.4 F 06/02/20 18:47 Pulse 73 06/02/20 18:47 Resp 18 06/02/20 18:47 BP 120/87 06/02/20 18:47 Pulse Ox 98 06/02/20 09:23 Discharge Plan Discharge Patient Disposition: Home Condition: Stable Prescriptions: New aspirin 81 mg Tablet,Delayed Release (Dr/Ec) 81 mg PO DAILY Qty: 30 RF: 0 Plavix 75 mg tablet 75 mg PO DAILY Qty: 21 RF: 0 Continued metformin 500 mg tablet extended release 24 hr 500 mg PO DAILY@22 RF: 0 duloxetine [Cymbalta] 60 mg capsule,delayed release(DR/EC) 60 mg PO DAILY@22 RF: 0 baclofen 10 mg tablet 10 mg PO TID PRN (Reason: Muscle Spasm) RF: 0 lorazepam [Ativan] 1 mg tablet 1 mg PO BID PRN (Reason: Anxiety) RF: 0 fluticasone propionate 50 mcg/actuation spray,suspension 1 spray INTRANASAL DAILY PRN (Reason: Allergy Symptoms) RF: 0 All Day Allergy (cetirizine) 10 mg capsule 10 mg PO DAILY PRN (Reason: Allergy Symptoms) RF: 0 Flintstones Multivitamin Tablet,Chewable See Rx Instructions .ROUTE .COMPLEX RF: 0 albuterol sulfate 90 mcg/actuation Hfa Aerosol Inhaler 1 - 2 puff INHALATION Q4H PRN (Reason: Shortness Of Breath) RF: 0 Changed Crestor 20 mg tablet 20 mg PO DAILY@22 Qty: 30 RF: 0 Discontinued diclofenac potassium 50 mg tablet 50 mg PO TID PRN (Reason: period pain) RF: 0 Discharge Orders: Discharge Order (Routine); Ordered 06/02/20 Ordered By: Chastity Betts Referrals: Aleksandra Paris NP [Referring] - 4-7 days (please call Wednesday to make a follow up appointment.) Discharge Diet: Advance as tolerated Discharge Activity: Increase activity as tolerated Patient Instructions: Aspirin (By mouth), Clopidogrel (By mouth), TIA Activity Restrictions/Additional Instructions: You Discharge Attestations Time Spent in Discharge Care*: greater than 30 min Specific Discharge Activities: discussing with pcp/other providers, discussing with case planner/social workers/dc planners, documenting/other paperwork and evaluating patient/reviewing data Status at Discharge: Cognitive status at discharge: cognitively intact , Behavioral status at discharge: cooperative , Functional status at discharge: independent ambulation Overall status at discharge: patient is progressing back to baseline Quality Metrics Clinical Quality Measures During this hospital stay, did patient experience: Stroke Contraindication to Antithrombotic: Antithrombotic prescribed (No contraindication was prescribed. ) Contraindication to Anticoagulation: Other (No atrial fib noted. 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
--- NOTE | 2020-06-03 13:49 | PC.RESP ---
Smoking Cessation information sent to patient.
== END 2020-06-02 18:48 | disposition home or self-care (01) ==
LOC: ER 09:09 → MEDSURG 09:45
PROVIDERS: Admitting Provider Hospitalist; Emergency Provider Family Medicine; Visit Provider Hospitalist
DX: I63.9 Cerebral infarction, unspecified (principal); R47.81 Slurred speech; R20.0 Anesthesia of skin; R29.702 NIHSS score 2; E11.9 Type 2 diabetes mellitus without complications; F32.89 Other specified depressive episodes; F41.9 Anxiety disorder, unspecified; E78.5 Hyperlipidemia, unspecified; K21.9 Gastro-esophageal reflux disease without esophagitis; F17.210 Nicotine dependence, cigarettes, uncomplicated; Z80.42 Family history of malignant neoplasm of prostate; Z82.49 Family history of ischemic heart disease and other diseases of the circulatory system; Z86.19 Personal history of other infectious and parasitic diseases; Z79.84 Long term (current) use of oral hypoglycemic drugs
CPT/HCPCS: 12345; 36415; 36416; 70450; 70496; 70498; 70553; 80053; 80061; 81003; 82962; 83036; 83605; 85025; 85610; 85730; 92523; 92610; 93306; 96360; 96361; 96374; 96375; 97110; 97161; 97165; 99283; 99285; A9579; G0378; J2405; J7030; Q9967

== ENCOUNTER 2021-06-19 07:17 | Outpatient (CLI) | payer OTHER, SELFPAY ==
--- NOTE | 2021-06-19 07:23 | XR_ITS ---
WS: [id number] Cervical spine, AP, odontoid view, lateral view in flexion, extension and neutral position, 1 Clinical Data: NECK PAIN WITH RADIATION Comparison: Cervical spine, 06/30/2010. Findings: No compression fractures are seen. There is degenerative disc narrowing at C5-C6 with accom panying osteophyte formation. There is loss of the normal lordotic curvature. On flexion and extensio n there is no limitation of motion or subluxation.. There is no prevertebral soft tissue swelling. Th e odontoid is unremarkable. The soft tissues of the neck and the lung apices are normal. XR/XR cervical spine 4-5V [id number] Impression: 1. Disc narrowing at C5-C6 with osteophyte formation. 2. Negative for limitation of motion and subluxation on flexion or extension.
== END 2021-06-19 07:18 | disposition home or self-care (01) ==
LOC: RAD 07:20
PROVIDERS: PCP Nurse Practitioner Family; Visit Provider Nurse Practitioner Family
DX: M54.12 Radiculopathy, cervical region (principal)
CPT/HCPCS: 72050

== ENCOUNTER 2022-04-16 14:44 | Outpatient (CLI) | payer OTHER, SELFPAY ==
--- NOTE | 2022-04-16 | XR_ITS ---
WS: [id number] Exam: XR knee LT 1-2V [id number] Date/Time of Exam: 04/16/2022 2:59 PM Reason For Exam: LEFT KNEE PAIN No fracture or dislocation. Mild degenerative narrowing of the medial joint compartment with marginal osteophytes. Slight spurring of the posterior patella. Probable joint effusion in the suprapatellar bursa. Unremarkable soft tissues. XR/XR knee LT 1-2V [id number] IMPRESSION: 1. Early degenerative change of the medial joint compartment. 2. Probable joint effusion in the suprapatellar bursa.
== END 2022-04-16 14:45 | disposition home or self-care (01) ==
PROVIDERS: PCP Nurse Practitioner Family; Visit Provider Nurse Practitioner Family
DX: M25.562 Pain in left knee (principal)
CPT/HCPCS: 73560

== ENCOUNTER 2022-12-29 09:06 | Emergency (ER) | payer OTHER, SELFPAY ==
[2022-12-29 09:13] VITALS: BP 138/84; PULSE 91; RESP 19; TEMP 36.6; O2SAT 98; BMI 32.1
--- NOTE | 2022-12-29 09:14 | XRR_ITS ---
PROCEDURE INFORMATION: Exam: XR Chest Exam date and time: 12/29/2022 9:19 AM Age: 52 years old Clinical indication: Shortness of breath; Patient HX: SOB, constant belching, wheezing TECHNIQUE: Imaging protocol: Radiologic exam of the chest. Views: 1 view. COMPARISON: CR XR chest 2V* [id number] 08/21/2018 4:36 PM FINDINGS: Lungs: Unremarkable. No consolidation. Pleural spaces: Unremarkable. No pleural effusion. No pneumothorax. Heart/Mediastinum: Unremarkable. No cardiomegaly. Bones/joints: Unremarkable. XR/XR chest 1V portable [id number] IMPRESSION: No acute findings.
--- NOTE | 2022-12-29 09:19 | ECG_ITS ---
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 Measurements Intervals [place] Rate: 87 P: 68 [place]: 120 QRS: 28 QRSD: 81 T: 27 QT: 342 QTc: 412 Interpretive Statements SINUS RHYTHM POSSIBLE LEFT ATRIAL ENLARGEMENT [-0.1mV P-WAVE IN V1/V2] No previous ECG available for comparison Electronically Signed On 12-29-2022 17:17:57 CDT by Azul Polo M.D. [email or web address], [id number] f
[2022-12-29 10:37] LABS: Basophils # 0.1 10^3/uL (0.0-0.1); Basophils % 0.6 %; Eosinophils # 0.1 10^3/uL (0.0-0.8); Eosinophils % 1.1 %; Hematocrit 43.6 % (37.0-47.0); Hemoglobin 14.5 g/dL (11.5-15.3); Lymphocytes # 2.5 10^3/uL (0.8-4.8); Lymphocytes % 30.2 %; Mean Corpuscular HGB Conc 33.3 g/dL (30.0-36.0); Mean Corpuscular Hemoglobin 31.6 pg (28.0-34.0); Mean Platelet Volume 9.3 fL (7.4-10.4); Monocytes # 0.5 10^3/uL (0.2-0.9); Monocytes % 6.1 %; Neutrophils # 5.04 10^3/uL (1.8-7.7); Neutrophils % 61.8 %; Nucleated Red Blood Cells % 0 %; Platelet Count 362 10^3/cmm (130-400); Red Blood Count 4.59 10^6/uL (4.1-5.3); Red Cell Distribution Width 12.9 % (12.1-15.1); White Blood Count 8.2 10^3/uL (4.0-10.0)
[2022-12-29 10:56] LABS: Alanine Aminotransferase 9 U/L (0-33); Albumin Level 4.2 g/dL (3.5-5.2); Alkaline Phosphatase 69 U/L (35-105); Aspartate Amino Transferase 13 U/L (0-32); Blood Urea Nitrogen 8 mg/dL (6-20); Calcium 9.1 mg/dL (8.5-10.5); Carbon Dioxide 24 mmol/L (22-29); Chloride 104 mmol/L (98-107); Globulin 2.6 g/dL (1.3-4.6); Glomerular Filtration Rate 105.4 mL/min (90-130); Glucose 83 mg/dL (65-115); Osmolality Calculated 283 mOsm/kg (285-295); Sodium 138 mmol/L (136-145); Total Bilirubin 0.6 mg/dL (0.15-1.2); Total Protein 6.8 g/dL (6.6-8.7)
[2022-12-29 11:12] LABS: Troponin(5th) Baseline 6 ng/L (0-10)
[2022-12-29 11:33] VITALS: BP 134/81; PULSE 72; RESP 16; O2SAT 97
--- NOTE | 2022-12-29 11:37 | ECG_ITS ---
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 Measurements Intervals [place] Rate: 76 P: 60 DE: 122 QRS: 30 QRSD: 91 T: 46 QT: 374 QTc: 422 Interpretive Statements SINUS RHYTHM No previous ECG available for comparison Electronically Signed On 12-29-2022 17:18:58 CDT by Azul Polo M.D. [id number]
--- NOTE | 2022-12-29 11:43 | W.ED.SOB ---
HPI - SOB/Dyspnea General: Chief Complaint: Shortness of Breath/Dyspnea Stated Complaint: Wheezing, Bulching, SOB Time Seen by Provider: 12/29/22 09:37 Source: patient Mode of arrival: ambulatory History of Present Illness: HPI Narrative: 52-year-old female presents emergency room with complaints of shortness of breath and eructations. She felt nauseated yesterday with a lot of burping. She could not sleep last night. States she fell like she had trouble talking so took an aspirin but she had no other focal neurologic symptoms she is having none now. Patient does take Ozempic once a week on Wednesdays she usually notices after she takes it she gets some stomach upset for a day or 2. She is not on any PPIs she is also on metformin. She has no known history of coronary disease she has not really had any chest pain no fever sweats chills no productive cough. MD elicited complaint: shortness of breath and cough Onset (ago): day(s) (1) Severity: moderate Exacerbating factors: nothing Relieving factors: nothing Associated symptoms: Reports nausea; Deny abdominal pain, chest congestion, chest pain, cough, diaphoresis, dizziness, extremity pain, fever(s), hemoptysis, lightheadedness, myalgias, orthopnea, palpitations, paresthesias, polydipsia, polyuria, rash, sense of impending doom, syncope or vomiting Treatment prior to arrival: none Review of Systems Const: Denies: fever(s), chills, fatigue, malaise or diaphoresis ENMT: Denies: throat pain, ear or mastoid pain, nasal discharge or nasal congestion Card: Denies: chest pain, palpitations, lightheadedness, syncope or orthopnea Resp: Denies: hemoptysis or chest congestion GI: Reports: nausea, heartburn, bloating and belching; Denies: abdominal pain or vomiting : Denies: flank pain, difficulty voiding, dysuria, urinary frequency or urinary urgency Musc: Denies: extremity pain Skin/Breast: Denies: rash or pruritus Neuro: Denies: dizziness Endo: Denies: polyuria or polydipsia PFSH ED PFSH: Medical History Acute CVA (cerebrovascular accident) Anxiety disorder Depression Diabetes mellitus GERD (gastroesophageal reflux disease) PPI History of colon polyps Hyperlipidemia Surgical History S/P breast biopsy S/P dilation and curettage Miscarriage S/P endometrial ablation (03/18/11) ThermaChoice endometrial ablation. [place] [facility] [place] S/P ERCP (~2004) At [facility]. Stone in duct after cholecystectomy. S/P laparoscopic cholecystectomy (05/21/05) Per[place] Dr. Garnett [place] [facility] [place]. S/P tubal ligation (~2004) Family History Denies family history of Colon cancer Ovarian cancer Diabetes Heart disease Hypercholesteremia Breast cancer Hypertension Uterine cancer Thyroid disease Stroke Physical Exam Const: GENERAL APPEARANCE: cooperative and comfortable ORIENTATION/CONSCIOUSNESS: Yes awake, Yes oriented to person, Yes oriented to place and Yes oriented to time HENMT: COMMON NORMALS: normocephalic, atraumatic and hearing grossly normal bilaterally HEAD & SCALP: normocephalic and atraumatic Resp: COMMON NORMALS: normal respiratory effort, No retractions, No use of accessory muscles and clear to auscultation bilaterally AUSCULTATION: clear to auscultation bilaterally Cardio: COMMON NORMALS: regular rate, regular rhythm and No murmurs present (Cardio) RATE: regular rate RHYTHM: regular rhythm GI: COMMON NORMALS: Soft to palpation and No hepatosplenomegaly present AUSCULTATION: Yes normoactive bowel sounds PALPATION: Yes Soft to palpation, No Tenderness to palpation present (GI), No Guarding due to palpation present (GI) and Yes No hepatosplenomegaly present Extremity: COMMON NORMALS: normal to inspection, capillary refill normal, no clubbing, cyanosis or edema, no calf tenderness and no pedal edema Neuro: SENSORIUM/ORIENTATION: Yes oriented to person, Yes oriented to place and Yes oriented to time Skin: COMMON NORMALS: no rashes or lesions noted GENERAL SKIN EXAM: no rashes or lesions noted Course Vital Signs: Vital signs: Vital Signs Temperature 97.8 F 12/29/22 09:13 Pulse Rate 77 12/29/22 13:39 Respiratory Rate 17 12/29/22 13:39 Blood Pressure 160/107 12/29/22 13:39 Pulse Oximetry 93 12/29/22 13:39 Oxygen Delivery Me thod Room Air 12/29/22 09:13 MDM - SOB/Dyspnea Medical Decision Making Cardiac enzymes and EKG are normal. No acute ST changes on the EKGs. Patient had significant improvement with GI cocktail with discharge patient home with PPI. Reviewed lab findings with the patient Medical Records I reviewed the patient's medical records. Lab Data I reviewed the patient's lab results. 12/29/22 10:30 12/29/22 10:30 Labs/Radiology: Radiology Impressions Chest X-Ray 12/29/22 09:14 IMPRESSION: No acute findings. Laboratory Results WBC 8.2 10^3/uL (4.0-10.0) 12/29/22 10:30 RBC 4.59 10^6/uL (4.1-5.3) 12/29/22 10:30 Hgb 14.5 g/dL (11.5-15.3) 12/29/22 10:30 Hct 43.6 % (37.0-47.0) 12/29/22 10:30 MCV 95.0 fl (81-99) 12/29/22 10:30 MCH 31.6 pg (28.0-34.0) 12/29/22 10:30 MCHC 33.3 g/dL (30.0-36.0) 12/29/22 10:30 RDW 12.9 % (12.1-15.1) 12/29/22 10:30 Plt Count 362 10^3/cmm (130-400) 12/29/22 10:30 MPV 9.3 fL (7.4-10.4) 12/29/22 10:30 Neut % (Auto) 61.8 % 12/29/22 10:30 Lymph % (Auto) 30.2 % 12/29/22 10:30 Gregory % (Auto) 6.1 % 12/29/22 10:30 Eos % (Auto) 1.1 % 12/29/22 10:30 Baso % (Auto) 0.6 % 12/29/22 10:30 Neut # (Auto) 5.04 10^3/uL (1.8-7.7) 12/29/22 10:30 Lymph # (Auto) 2.5 10^3/uL (0.8-4.8) 12/29/22 10:30 Gregory # (Auto) 0.5 10^3/uL (0.2-0.9) 12/29/22 10:30 Eos # (Auto) 0.1 10^3/uL (0.0-0.8) 12/29/22 10:30 Baso # (Auto) 0.1 10^3/uL (0.0-0.1) 12/29/22 10:30 Nucleated RBC % (auto) 0 % 12/29/22 10:30 Nucleated RBCs # 0.0 /100WBC 12/29/22 10:30 Sodium 138 mmol/L (136-145) 12/29/22 10:30 Potassium 4.0 mmol/L (3.5-5.1) 12/29/22 10:30 Chloride 104 mmol/L (98-107) 12/29/22 10:30 Carbon Dioxide 24 mmol/L (22-29) 12/29/22 10:30 Anion Gap 14.0 (5-19) 12/29/22 10:30 BUN 8 mg/dL (6-20) 12/29/22 10:30 Creatinine 0.6 mg/dL (0.5-0.9) 12/29/22 10:30 GFR Calculation 105.4 mL/min (90-130) 12/29/22 10:30 Glucose 83 mg/dL (65-115) 12/29/22 10:30 Calculated Osmolality 283 mOsm/kg (285-295) L 12/29/22 10:30 Calcium 9.1 mg/dL (8.5-10.5) 12/29/22 10:30 Total Bilirubin 0.6 mg/dL (0.15-1.2) 12/29/22 10:30 AST 13 U/L (0-32) 12/29/22 10:30 ALT 9 U/L (0-33) 12/29/22 10:30 Alkaline Phosphatase 69 U/L (35-105) 12/29/22 10:30 Troponin T Baseline 6 ng/L (0-10) 12/29/22 10:30 Troponin T 120 Minute 6.00 ng/L (0-10) 12/29/22 12:27 Delta Troponin T 0 ABS# (0-10) 12/29/22 12:27 Total Protein 6.8 g/dL (6.6-8.7) 12/29/22 10:30 Albumin 4.2 g/dL (3.5-5.2) 12/29/22 10:30 Globulin 2.6 g/dL (1.3-4.6) 12/29/22 10:30 H. pylori IgG Antibody Negative (Negative) 12/29/22 10:30 Discharge Plan Discharge Patient Disposition: Home Clinical Impression: GERD (gastroesophageal reflux disease) Condition: Stable Prescriptions: New Protonix 40 mg tablet,delayed release (DR/EC) 40 mg PO BID 14 Days Qty: 28 0RF No Action metformin 500 mg tablet extended release 24 hr 500 mg PO DAILY@22 duloxetine [Cymbalta] 60 mg capsule,delayed release(DR/EC) 60 mg PO DAILY@22 baclofen 10 mg tablet 10 mg PO TID PRN (Reason: Muscle Spasm) lorazepam [Ativan] 1 mg tablet 1 mg PO BID PRN (Reason: Anxiety) fluticasone propionate 50 mcg/actuation spray,suspension 1 spray INTRANASAL DAILY PRN (Reason: Allergy Symptoms) Rx Instructions: administer into each nostril All Day Allergy (cetirizine) 10 mg capsule 10 mg PO DAILY PRN (Reason: Allergy Symptoms) acetaminophen-codeine 300-30 mg tablet 1 tab PO Q6H PRN (Reason: pain) Qty: 14 0RF silver sulfadiazine 1 % cream 1 applic topical BID Qty: 50 0RF Rx Instructions: apply a 1.5 mm thickness cephalexin [Keflex] 500 mg capsule 500 mg PO BID 10 Days Qty: 20 0RF Flintstones Multivitamin Tablet,Chewable See Rx Instructions .ROUTE .COMPLEX Rx Instructions: 1 tab po three times a week albuterol sulfate 90 mcg/actuation Hfa Aerosol Inhaler 1 - 2 puff INHALATION Q4H PRN (Reason: Shortness Of Breath) aspirin 81 mg Tablet,Delayed Release (Dr/Ec) 81 mg PO DAILY Qty: 30 0RF Plavix 75 mg tablet 75 mg PO DAILY Qty: 21 0RF Crestor 20 mg tablet 20 mg PO DAILY@22 Qty: 30 0RF Discharge Orders: Discharge ED (Routine); Ordered 12/29/22 Ordered By: Edmar Mendiola Referrals: Diane Berg FNP [Primary Care Provider] - Discharge Diet: As Directed Discharge Activity: Increase activity as tolerated Patient Instructions: Opioid Safety, Pain Management Stand Alone Forms: Work/School Release Coding Level of Care Code ED [facility]yer for Eriberto Lerma
[2022-12-29 12:00] VITALS: BP 144/91; PULSE 86; RESP 17; O2SAT 99
[2022-12-29 12:21] LABS: H. Pylori IgG Antibody Negative (Negative)
[2022-12-29 13:12] LABS: Troponin 5 2HR Delta 0 ABS# (0-10)
[2022-12-29 13:39] VITALS: BP 160/107; PULSE 77; RESP 17; O2SAT 93
== END 2022-12-29 13:40 | disposition home or self-care (01) ==
PROVIDERS: Physician Assistant; Emergency Provider Family Medicine; PCP Nurse Practitioner Family
DX: R11.0 Nausea (principal); R14.0 Abdominal distension (gaseous); R12 Heartburn; E11.9 Type 2 diabetes mellitus without complications; E78.5 Hyperlipidemia, unspecified; K21.9 Gastro-esophageal reflux disease without esophagitis; Z79.82 Long term (current) use of aspirin; Z79.02 Long term (current) use of antithrombotics/antiplatelets; Z79.84 Long term (current) use of oral hypoglycemic drugs
CPT/HCPCS: 36415; 71045; 80053; 84484; 85025; 86677; 93005; 99285

== ENCOUNTER 2023-05-07 10:26 | Outpatient (CLI) | payer OTHER, SELFPAY ==
--- NOTE | 2023-05-07 10:29 | MM_ITS ---
WS: [id number] BILATERAL 3D TOMOSYNTHESIS DIGITAL SCREENING MAMMOGRAPHY WITH CAD CLINICAL INFORMATION: SCREENING HISTORY: Screening mammogram. No current complaints. COMPARISON: 2017 TECHNIQUE: Bilateral CC and MLO views. FINDINGS: The breasts are composed of heterogeneous fibroglandular density tissue, which can limit the detectio n of small underlying mass lesions. No suspicious mass, asymmetry, calcifications, or architectural d istortion. No evidence of malignancy. Diffuse incidental punctate and clustered calcifications simila r to previous. IMPRESSION: MM/[place] [id number] BI-RADS: 2-Benign FOLLOW UP: 1 Year Follow-up Recommend return to annual screening mammography.
== END 2023-05-07 10:27 | disposition home or self-care (01) ==
LOC: RAD 10:26
PROVIDERS: PCP Nurse Practitioner Family; Visit Provider Nurse Practitioner Family
DX: Z12.31 Encounter for screening mammogram for malignant neoplasm of breast (principal)
CPT/HCPCS: 77063; 77067

== ENCOUNTER 2023-08-27 14:51 | Outpatient (CLI) | payer OTHER, SELFPAY ==
--- NOTE | 2023-08-27 15:14 | XRR_ITS ---
PROCEDURE INFORMATION: Exam: XR Chest Exam date and time: 08/27/2023 3:25 PM Age: 53 years old Clinical indication: Patient HX: Cough x 1 week; Copd; Chest congestion TECHNIQUE: Imaging protocol: Radiologic exam of the chest. Views: 2 views. COMPARISON: CR XR chest 1V portable [id number] 12/29/2022 9:19 AM FINDINGS: Lungs: No consolidation. Pleural spaces: No pleural effusion. No pneumothorax. Heart/Mediastinum: No cardiomegaly. Bones/joints: No acute findings. XR/XR chest 2V* [id number] IMPRESSION: No acute findings.
== END 2023-08-27 14:52 | disposition home or self-care (01) ==
PROVIDERS: PCP Nurse Practitioner Family; Visit Provider Nurse Practitioner Family
DX: R05.9 Cough, unspecified (principal)
CPT/HCPCS: 71046

== ENCOUNTER 2023-11-19 15:11 | Outpatient (CLI) | payer OTHER, SELFPAY ==
--- NOTE | 2023-11-19 15:26 | XRR_ITS ---
PROCEDURE INFORMATION: Exam: XR Right Ankle Exam date and time: 11/19/2023 3:31 PM Age: 53 years old Clinical indication: Ankle; Right; Patient HX: Numbness in foot after pop a few days ago pain for 2 months; Additional info: R ankle pain TECHNIQUE: Imaging protocol: Radiologic exam of the right ankle. Views: 3 or more views. COMPARISON: No relevant prior studies available. FINDINGS: Bones/joints: There is a 3 mm osseous fragment adjacent to the tip of the medial malleolus with adjacent donor site visible on series 1, image 1. The lateral malleolus is intact. Ankle mortise alignment is normal. Joint spaces are preserved. Probable small ankle joint effusion. Small unfused os trigonum. There is a superior calcaneal enthesophyte of uncertain significance. Soft tissues: Visible soft tissues are unremarkable. XR/XR ankle RT min 3V* [id number] IMPRESSION: 1. Medial malleolar avulsion fracture of indeterminate age. 2. Normal ankle mortise alignment.
== END 2023-11-19 15:12 | disposition home or self-care (01) ==
PROVIDERS: PCP Nurse Practitioner Family; Visit Provider Nurse Practitioner Family
DX: M25.571 Pain in right ankle and joints of right foot (principal)
CPT/HCPCS: 73610

== ENCOUNTER → 2024-01-24 07:56 | Outpatient (BNVA) | payer OTHER, SELFPAY | PROVIDERS: PCP Nurse Practitioner Family; Visit Provider Podiatrist Foot & Ankle Surgery | DX: S82.51XD Displaced fracture of medial malleolus of right tibia, subsequent encounter for closed fracture with routine healing; X58.XXXD Exposure to other specified factors, subsequent encounter; E11.9 Type 2 diabetes mellitus without complications; G57.51 Tarsal tunnel syndrome, right lower limb; Z79.84 Long term (current) use of oral hypoglycemic drugs | CPT/HCPCS: 73610 ==

== ENCOUNTER → 2024-02-25 11:22 | Outpatient (BNVA) | payer OTHER, SELFPAY | PROVIDERS: PCP Nurse Practitioner Family; Visit Provider Student in an Organized Health Care Education/Training Program | DX: M65.331 Trigger finger, right middle finger (principal); G56.01 Carpal tunnel syndrome, right upper limb | CPT/HCPCS: 73130 ==

== ENCOUNTER 2024-04-05 05:48 | Day surgery (SDC) | payer OTHER, SELFPAY ==
--- NOTE | 2024-04-04 15:13 | P.ANESASSM_ITS ---
Pre-Anesthetic Assessment Height/Weight: Height 5 ft 3 in Preop Diagnosis: Carpal tunnel Operation Date: 04/05/24 07:10 Proposed Procedures p middle finger trigger release(Right) - Gael Ontiveros DO s Carpal Tunnel Release(Right) - Gael Ontiveros DO Was Beta Sasha taken within 24 hours: N/A Was Clonidine taken within 24 hours: N/A Social Tobacco and No alcohol Exam alert, oriented x 3, clear to auscultation bilaterally and regular rate & rhythm Airway Submandibular: within normal limits Cervical ROM: within normal limits Mallampati: Class I Dentition: full Comments: Comments: Multiple missing bottom teeth, denies any loose teeth Anesthetic Plan ASA status: 2 Anesthesia: MAC Other: No prior issues with anesthesia NPO since yesterday evening History of diabetes on metformin and Mounjaro. Most recently taken 03/29/2024. AM BS 106 GERD, diet controlled Prior EKG showing sinus rhythm Plan for MAC anesthetic with local via surgeon Medications/Allergies Home Medications Medication Instructions Recorded Confirmed Last Taken Type baclofen 10 mg tablet 10 mg PO TID PRN Muscle Spasm 04/03/20 04/04/24 Unknown History cetirizine 10 mg capsule (All Day 10 mg PO DAILY PRN Allergy Symptoms 04/03/20 04/04/24 04/04/24 History Allergy (cetirizine)) duloxetine 60 mg capsule,delayed 30 mg PO DAILY@22 04/03/20 04/05/24 04/04/24 History release (Cymbalta) lorazepam 1 mg tablet (Ativan) 1 mg PO BID PRN Anxiety 04/03/20 04/04/24 Unknown History albuterol sulfate 90 mcg/actuation 1 - 2 puff inhalation Q4H PRN 06/01/20 04/04/24 Unknown History aerosol inhaler Shortness Of Breath rosuvastatin 20 mg tablet (Crestor) 20 mg PO DAILY@22 #30 tabs 06/02/20 04/05/24 04/04/24 Rx silver sulfadiazine 1 % topical 1 applic topical BID #50 grams 08/01/20 04/04/24 Unknown Rx cream ibuprofen 200 mg tablet 800 mg PO TID Pain 11/23/23 04/04/24 Unknown History metformin 500 mg 24 hr 500 mg PO DAILY Diabetes 11/23/23 04/05/24 04/04/24 History tablet,extended release (gastric retention) triamcinolone acetonide 0.1 % 1 applic topical TID #30 grams 12/13/23 04/04/24 Unknown Rx topical cream lifitegrast 5 % eye drops in a 1 drp ophthalmic (eye) BID 02/25/24 04/05/24 04/05/24 History dropperette (Xiidra) loteprednol etabonate 0.5 % eye 1 drp ophthalmic (eye) QID 02/25/24 04/05/24 04/05/24 History gel drops vitamin B complex 1 tab PO DAILY 02/25/24 04/04/24 04/03/24 History tirzepatide 2.5 mg/0.5 mL 2.5 mg SUBCUT DIRECTED 04/04/24 04/04/24 03/29/24 History subcutaneous pen injector (Mounjaro) Allergies Allergy/AdvReac Type Severity Reaction Status Date / Time No Known Allergies Allergy Verified 02/25/24 11:12 [facility] Anesthesia Medical History Acute CVA (cerebrovascular accident) History of colon polyps Hyperlipidemia Anxiety disorder Depression Diabetes mellitus GERD (gastroesophageal reflux disease) PPI Surgical History S/P breast biopsy S/P endometrial ablation (03/18/11) ThermaChoice endometrial ablation. Per[place] Dr. Ly at [facility] in [place], [place] S/P ERCP (~2004) At [facility]. Stone in duct after cholecystectomy. S/P laparoscopic cholecystectomy (05/21/05) Performed by Dr. Garnett at [facility] in [place], [place]. S/P dilation and curettage Miscarriage S/P tubal ligation (~2004) Family History Denies family history of Colon cancer Ovarian cancer Diabetes Heart disease Hypercholesteremia Breast cancer Hypertension Uterine cancer Thyroid disease Stroke Social History Smoking and tobacco/nicotine status: current every day tobacco/nicotine user Data Anesthesia Cardiac Studies: Echocardiogram Ultrasound 06/02/20
[2024-04-05] VITALS (7 sets, daily range): BP systolic 118–159; BP diastolic 64–100; PULSE 70–99; RESP 17–18; TEMP 36.2–36.3; O2SAT 96–98; BMI 32.5
[2024-04-05 06:16] LABS: Glucose Point of Care 106 mg/dL (70-110)
[2024-04-05] MEDS: acetaminophen 1,000 MG/100 ML PIGGYBACK 400 MG IV (06:25)
[2024-04-05] MEDS: sodium chloride 0.9% 1,000 ML 30 ML IV (06:25)
[2024-04-05] MEDS: ketorolac 30 mg/mL INJ IVP (06:30)
[2024-04-05] MEDS: scopolamine 1.5 Patch 1 PATCH TRANSDERMA (06:31)
--- NOTE | 2024-04-05 06:59 | W.PM.OPSFHP ---
Same Day Surgery H&P Indication for Procedure/HPI DATE OF PROCEDURE: April 05, 2024 CHIEF COMPLAINT/INDICATIONFOR SURGICAL PROCEDURE: Right carpal tunnel syndrome right middle finger trigger PREOP DIAGNOSIS: Right carpal tunnel syndrome, right middle finger trigger PLANNED PROCEDURE: Operation Date: 04/05/24 07:00 Proposed Procedures p middle finger trigger release(Right) - Gael Ontiverso DO s Carpal Tunnel Release(Right) - Gael Ontiveros DO Medications/Allergies* Home Medications Medication Instructions Recorded Confirmed Type baclofen 10 mg tablet 10 mg PO TID PRN Muscle Spasm 04/03/20 04/04/24 History cetirizine 10 mg capsule (All Day 10 mg PO DAILY PRN Allergy Symptoms 04/03/20 04/04/24 History Allergy (cetirizine)) duloxetine 60 mg capsule,delayed 30 mg PO DAILY@22 04/03/20 04/05/24 History release (Cymbalta) lorazepam 1 mg tablet (Ativan) 1 mg PO BID PRN Anxiety 04/03/20 04/04/24 History albuterol sulfate 90 mcg/actuation 1 - 2 puff inhalation Q4H PRN 06/01/20 04/04/24 History aerosol inhaler Shortness Of Breath ibuprofen 200 mg tablet 800 mg PO TID Pain 11/23/23 04/04/24 History metformin 500 mg 24 hr 500 mg PO DAILY Diabetes 11/23/23 04/05/24 History tablet,extended release (gastric retention) lifitegrast 5 % eye drops in a 1 drp ophthalmic (eye) BID 02/25/24 04/05/24 History dropperette (Xiidra) loteprednol etabonate 0.5 % eye 1 drp ophthalmic (eye) QID 02/25/24 04/05/24 History gel drops vitamin B complex 1 tab PO DAILY 02/25/24 04/04/24 History tirzepatide 2.5 mg/0.5 mL 2.5 mg SUBCUT DIRECTED 04/04/24 04/04/24 History subcutaneous pen injector (Mounjaro) Allergies/Adverse Reactions Allergy/AdvReac Type Severity Reaction Status Date / Time No Known Allergies Allergy Verified 02/25/24 11:12 Current Medications: Generic Name Dose Route Start Last Admin Trade Name Freq PRN Reason Stop Dose Admin Sodium Chloride 1,000 mls @ 30 mls/hr 04/05/24 06:00 04/05/24 06:25 Sodium Chloride 0.9% IV 04/06/24 05:59 30 mls/hr .Q24H SHARON Administration Pertinent History/Comorbid Conditions* Medical History (Updated 12/13/23 @ 12:30 by Cornelio Long DPM) Acute CVA (cerebrovascular accident) History of colon polyps Hyperlipidemia Anxiety disorder Depression Diabetes mellitus GERD (gastroesophageal reflux disease) PPI Surgical History (Updated 04/06/20 @ 14:48 by Mat Cobian MD) S/P breast biopsy S/P endometrial ablation (03/18/11) ThermaChoice endometrial ablation. [place]. [place] [facility] [place] S/P ERCP (~2004) At [facility]. Stone in duct after cholecystectomy. S/P laparoscopic cholecystectomy (05/21/05) Per[place] by Dr. Garnett [place] [facility] [place]. S/P dilation and curettage Miscarriage S/P tubal ligation (~2004) Family History (Updated 01/30/22 @ 07:43 by Karen Collado LPN) Denies family history of Colon cancer Ovarian cancer Diabetes Heart disease Hypercholesteremia Breast cancer Hypertension Uterine cancer Thyroid disease Stroke Social History Smoking and tobacco/nicotine status: current every day tobacco/nicotine user Pertinent Exam Findings alert, oriented x 3, operative site marked and procedure specific exam findings Please refer to detailed orthopedic examination on 02/25/2024: Right Upper Extremity Exam: -Normal C-spine ROM?, No pain. -Negative Spurling's -Negative Tinel's @ shoulder. Normal ROM shoulder -Negative Tinel's @ elbow. Normal ROM elbow. -Positive median compression test at the wrist -Positive Tinel's over the carpal tunnel -Positive Phalen's -No Intrinsic atrophy noted -Tenderness to A1 nelli right middle finger -Positive Mechanical triggering right middle finger -Decreased range of motion secondary to pain and discomfort of right middle finger Recommendations Surgery/Procedure today Other Plans: Plan to proceed to the OR middle finger trigger release and right carpal tunnel release. Patient understands the ins and outs of procedure the risk benefits complication alternatives with surgery and through shared decision-making elects proceed with surgical intervention. All questions been answered at this time. Coding Level of Care Code Acute Code for Chg Fwd
[2024-04-05] MEDS: ceFAZolin 2,000 MG in sodium chloride 0.9% (plus) 50 ML 100 MG IV (07:01)
--- NOTE | 2024-04-05 07:41 | PM.OP ---
Operative Report Date of procedure: April 05, 2024 Surgeon: Gael Ontiveros DO Chemical Dependency Attendant: Juan F Ontiveros PA-C: PA was necessary for assistance in this case with hand positioning to execute the procedure, retraction and protection of neurovascular structures as well as to assist with wound closure and dressing application. Procedure: Preop Diagnosis: Right Carpal Tunnel Syndrome Right middle finger Post-op diagnosis: Same Procedure done: 1. Right carpal tunnel release 2. Right middle finger trigger release Surgeon: Gael Ontiveros DO Anesthesia: MAC (Local) Estimated blood loss: 2 mL Tourniquet time 12 minutes IV fluids: See anesthesia record Complications: None Findings: See operative report narrative Condition: stable Disposition: same day Brief History: Patient is a pleasant 54year-old female with right carpal tunnel syndrome and right middle finger trigger. Patient has been worked up in the outpatient setting findings and physical examination consistent with this. patient had previous nerve conduction study that had mild carpal tunnel years ago. We detailed out patient's risk benefits complication alternatives with surgical and nonsurgical treatment options. Through shared decision making, patient agrees to proceed with surgical intervention of the right carpal tunnel release and right middle finger trigger release. Patient understands and agrees with current plan. All questions answered. Patient elects to proceed with surgical intervention. Procedure: Patient seen and evaluated in the preoperative holding area. Consent was reviewed and signed with patient. Correct extremity was marked. Patient was seen evaluated by the anesthesia department once cleared for surgery was brought back to the operative suite. Patient was kept on [facility] in supine position all bony prominences were well-padded patient properly secured to the bed. Right upper extremity was then placed onto an armboard. A nonsterile tourniquet was applied to the Right upper arm. Patient underwent anesthesia per the anesthesia department. Patient's Right upper extremity was then prepped and draped in standard orthopedic fashion. Final timeout performed. Patient received appropriate preoperative antibiotics. Under sterile aseptic technique patient received local anesthesia over the preplanned carpal tunnel incision site.Under sterile aseptic technique local digital block was performed to the right?middle finger.? Esmarch was used to exsanguinate the Right upper extremity and tourniquet was insufflated to 250 mmHg. Once appropriately anesthetized a standard oblique incision was made centering over the A1 nelli following patient's flexor crease to the right middle finger.? Sharp scalpel incision was made only through skin and then switched to Littler dissection scissors and spread longitudinally directly over the flexor tendon sheath.? I then mobilized both radially and ulnarly and Kasdan retractors were used and placed by my paperhanger assistant to protect neurovascular bundle.? Next I visualized the A1 nelli and this was incised with a scalpel.? I then switched to dissection scissors and released the A1 nelli both proximally as well as distally to its entirety.? Significant tendon sheath fluid was noted consistent with inflammation.? Mild fraying of the flexor tendons noted but no tear.? At this point I utilized a rag nail and pulled the tendons FDS and FDP out of the incision and no?triggering was noted.? Finger was taken through range of motion and fingers making a fist and there is no mechanical triggering or catching noted.? This point thorough irrigation was performed.? Next I proceeded with the carpal tunnel release. A standard mini open Right carpal tunnel incision was made. Starting distally at Briggs's cardinal line in line with the fourth ray extending proximally distal to the wrist crease centered over the carpal tunnel. Sharp scalpel incision was made through skin and subcutaneous tissue. Self-retaining retractor was placed and the palmar fascia was identified. This was then split longitudinally and direct visualization of the transverse carpal ligament was then made. I then utilizing scalpel feathered through the transverse carpal ligament until I entered the floor of the transverse carpal tunnel ligament into the carpal tunnel. Next I switched to dissection scissors and completed my release of the transverse carpal ligament distally with care to protect the recurrent motor branch. I completely released into the palmar fat and until no entrapment was noted distally. Care was made to protect the superficial palmar arch during my distal dissection. Next I utilized a nasal speculum placed on top of the transverse carpal ligament and utilize this to retract the subcutaneous fat and tissue and under direct loupe magnification was able to identify the transverse carpal ligament. Next I then protected the contents of the carpal tunnel and subsequently utilizing dissection scissors under loupe magnification completely released the transverse carpal ligament proximally into the antebrachial fascia. Care was made to protect the palmar cutaneous branch by keeping my scissors curved ulnarly. Once completely released, I then placed my [place] and had appropriate decompression of the carpal tunnel proximally as well as distally. I then inspected the contents of the carpal tunnel which showed an hourglass shape of the median nerve showing its compression. No masses were noted. Tendons appeared healthy. Wound was then thoroughly irrigated. Tourniquet deflated. Hemostasis satisfactory with bipolar electrocautery. I then closed the incision with interrupted nylon stitches. Xeroform 4 x 4's and a bulky soft dressing was applied. Patient was then awakened from anesthesia and taken to PACU in stable condition. Patient tolerated procedure without complications. Disposition: Patient taken to PACU in stable condition recovering well. Dressing clean dry and intact. Patient will receive appropriate discharge instructions as well as pain medication postoperatively. Patient to follow-up with me in the office in 2 weeks. They understand they may be weightbearing as tolerated to the right hand. Patient should keep incision clean dry and intact. Patient understands if any questions or concerns may contact the office.
[2024-04-05] MEDS: lidocaine 1% 10 ML INJ 5 ML INJECTION (07:43)
[2024-04-05] MEDS: ROPivacaine 0.5% SDV 30 mL 50 MG INJECTION (07:45)
[2024-04-05] MEDS: lidocaine-epi 1% 20 mL INJ 5 ML INJECTION (07:46)
--- NOTE | 2024-04-05 07:56 | W.PM.BPON ---
Date of Procedure: [April 05, 2024] Surgeon: [Dr. Ontiveros DO] Learning And Development Administrator(s): [Juan F Ontiveros PA-C] Procedure(s) performed: [Right middle trigger finger release and right carpal tunnel release] Findings of the procedure(s): [Right middle trigger finger and right carpal tunnel syndrome. Procedure went well and as planned.] Estimated blood loss: [2 mL] Specimen(s) removed: [N/A] Post-operative diagnosis: [Right middle trigger finger and right carpal tunnel syndrome]
--- NOTE | 2024-04-05 07:59 | PM.PACU ---
PACU note Narrative: Patient is a 54-year-old female just underwent a right carpal tunnel release and right middle trigger finger release. Patient transferred to PACU in stable condition. Pain is well controlled. Dressing on hand is dry and in place. Patient's fingers are warm and well-perfused. Patient can wiggle fingers. normal cap refill under 2 seconds. Patient has normal elbow range of motion. Unable to assess sensation due to residual localized anesthetic. Exam: awake Disposition: discharged
--- NOTE | 2024-04-05 08:37 | ANE.PACU2 ---
Inpatient post-anesthesia follow up: Airway intact: Yes Vital signs: Temperature 97.3 F Pulse Rate 75 Respiratory Rate 18 Blood Pressure 118/81 Pulse Oximetry 97 Oxygen Delivery Me thod Room Air Oxygen Flow Rate Fraction of Inspir ed Oxygen Hydration adequate: Yes Nausea and vomiting: No Pain level: 1 Mental status: Baseline
== END 2024-04-05 08:37 | disposition home or self-care (01) ==
PROVIDERS: PCP Nurse Practitioner Family; Visit Provider Student in an Organized Health Care Education/Training Program
PROC: (CPT 26055; principal; 2024-04-05 07:00)
PROC: (CPT 64721; 2024-04-05 07:00)
DX: G56.01 Carpal tunnel syndrome, right upper limb (principal); M65.331 Trigger finger, right middle finger; F32.A Depression, unspecified; E78.5 Hyperlipidemia, unspecified; E11.9 Type 2 diabetes mellitus without complications; K21.9 Gastro-esophageal reflux disease without esophagitis; F17.200 Nicotine dependence, unspecified, uncomplicated; Z79.84 Long term (current) use of oral hypoglycemic drugs; Z86.73 Personal history of transient ischemic attack (TIA), and cerebral infarction without residual deficits
CPT/HCPCS: 26055; 64721; 36416; 82962; J0131; J0690; J1885; J2250; J2704; J2795; J3010; J7030

== ENCOUNTER 2024-04-20 06:18 | Outpatient (CLI) | payer OTHER, SELFPAY | END 2024-04-20 23:59 | disposition home or self-care (01) | LOC: SOT 04-21 10:19 | PROVIDERS: PCP Nurse Practitioner Family; Visit Provider Physician Assistant | DX: Z46.89 Encounter for fitting and adjustment of other specified devices (principal); M65.332 Trigger finger, left middle finger; G56.22 Lesion of ulnar nerve, left upper limb | CPT/HCPCS: 97760; L3923 ==

== ENCOUNTER 2024-04-25 06:00 | Outpatient (RCR) | payer OTHER, SELFPAY | END 2024-05-20 23:59 | disposition home or self-care (01) | LOC: SOT 06:00 | PROVIDERS: PCP Nurse Practitioner Family; Visit Provider Physician Assistant | DX: M65.331 Trigger finger, right middle finger (principal); G56.01 Carpal tunnel syndrome, right upper limb | CPT/HCPCS: 97022; 97110; 97140; 97165; 97530 ==

== ENCOUNTER 2024-05-03 14:20 | Outpatient (CLI) | payer OTHER, SELFPAY | END 2024-05-03 14:21 | disposition home or self-care (01) | LOC: SLEEP 14:21 | PROVIDERS: PCP Nurse Practitioner Family; Visit Provider Nurse Practitioner Family | DX: G47.33 Obstructive sleep apnea (adult) (pediatric) (principal) | CPT/HCPCS: G0399 ==

== ENCOUNTER 2024-05-19 13:57 | Outpatient (CLI) | payer OTHER, SELFPAY ==
--- NOTE | 2024-05-19 13:58 | MM_ITS ---
WS: [id number] BILATERAL SCREENING DIGITAL TOMOSYNTHESIS MAMMOGRAM WITH CAD HISTORY: SCREENING COMPARISON: 05/07/2023, 04/28/2017, 10/03/2014 Bilateral CC and MLO views with tomosynthesis and synthetic mammography submitted. Computer aided det ection analyzed. Breast composition: The breasts are heterogeneously dense, which may obscure small masses. No suspici ous masses, microcalcifications or architectural distortion. No mass is identified. Numerous calcific ations within each breast. Greater distribution of calcifications on the LEFT breast. Majority of the se calcifications are benign or vascular. There are few calcifications with their very fine but stabl e. MM/MM scr BI tomosynthesis [id number] IMPRESSION: BI-RADS: 2 - Benign FOLLOW UP: 1 Year Follow-up
== END 2024-05-19 13:58 | disposition home or self-care (01) ==
LOC: RAD 13:58
PROVIDERS: PCP Nurse Practitioner Family; Visit Provider Nurse Practitioner Family
DX: Z12.31 Encounter for screening mammogram for malignant neoplasm of breast (principal); R92.333 Mammographic heterogeneous density, bilateral breasts; R92.1 Mammographic calcification found on diagnostic imaging of breast
CPT/HCPCS: 77063; 77067

== ENCOUNTER 2024-05-21 06:00 | Outpatient (RCR) | payer OTHER, SELFPAY | END 2024-06-20 23:59 | disposition home or self-care (01) | LOC: SOT 06:00 | PROVIDERS: PCP Nurse Practitioner Family; Visit Provider Physician Assistant | DX: M65.331 Trigger finger, right middle finger (principal); G56.01 Carpal tunnel syndrome, right upper limb | CPT/HCPCS: 97110; 97140; 97530 ==

== ENCOUNTER → 2025-04-04 08:09 | Outpatient (BNVA) | payer OTHER, SELFPAY | PROVIDERS: PCP Nurse Practitioner Family; Visit Provider Physician Assistant | DX: M70.61 Trochanteric bursitis, right hip (principal) | CPT/HCPCS: 73502 ==

== ENCOUNTER 2025-06-20 13:02 | Outpatient (CLI) | payer OTHER, SELFPAY ==
--- NOTE | 2025-06-20 13:06 | MM_ITS ---
WS: [id number] BILATERAL 3D TOMOSYNTHESIS DIGITAL SCREENING MAMMOGRAPHY WITH CAD CLINICAL INFORMATION: SCREENING MAMMOGRAM HISTORY: Screening mammogram. No current complaints. COMPARISON: 2023 TECHNIQUE: Bilateral CC and MLO views. FINDINGS: The breasts are composed of heterogeneous fibroglandular density tissue, which can limit the detection of small underlying mass lesions. No suspicious mass, asymmetry, calcifications, or architectural distortion. No evidence of malignancy. Incidental punctate and clustered calcifications similar to previous MM/MM [facility] tomosynthesis [id number] IMPRESSION: DENSITY: The breasts are heterogeneously dense, which may obscure small masses. BI-RADS: 2 - Benign FOLLOW UP: 1 Year Follow-up Recommend return to annual screening mammography.
== END 2025-06-20 13:03 | disposition home or self-care (01) ==
LOC: RAD 13:02
PROVIDERS: PCP Nurse Practitioner Adult Health; Visit Provider Nurse Practitioner Adult Health
DX: Z12.31 Encounter for screening mammogram for malignant neoplasm of breast (principal); R92.333 Mammographic heterogeneous density, bilateral breasts; R92.323 Mammographic fibroglandular density, bilateral breasts; R92.1 Mammographic calcification found on diagnostic imaging of breast
CPT/HCPCS: 77063; 77067